=== PATIENT | female | born 1960 | race Two or more races ===

== ENCOUNTER 2025-06-15 19:42 | Emergency (ER) | payer MEDICARE, OTHER ==
[~2025-06-15] VITALS: Ht 149.9 cm; Wt 86.4 kg
[2025-06-15 20:01] VITALS: BP 154/99; PULSE 89; RESP 18; TEMP 98.3; O2SAT 98
== END 2025-06-15 20:08 | disposition left against medical advice (07) ==
LOC: EDBD 19:42 → ER 19:42
DX: M79.602 Pain in left arm (principal); Z53.21 Procedure and treatment not carried out due to patient leaving prior to being seen by health care provider; Z79.899 Other long term (current) drug therapy
CPT/HCPCS: 82947

== ENCOUNTER 2025-07-07 12:29 | Outpatient (CLI) | payer MEDICARE, BC ==
[2025-07-07 12:37] VITALS: BP 138/67; PULSE 73; RESP 16; O2SAT 92
[2025-07-07 12:50] VITALS: BP 139/66; PULSE 72; RESP 16; O2SAT 92
== END 2025-07-07 17:00 | disposition home or self-care (01) ==
LOC: CHF HDHVI 12:29
PROVIDERS: ATTEND Internal Medicine Cardiovascular Disease
DX: Z01.810 Encounter for preprocedural cardiovascular examination (principal); I65.21 Occlusion and stenosis of right carotid artery
CPT/HCPCS: 93005; G0463